=== PATIENT | male | born 1960 | race Caucasian/White ===

== ENCOUNTER 2017-12-08 14:08 | Emergency (ER) | payer MEDICAID ==
[2017-12-08] MEDS ORDERED: Lactated Ringers 1,000 ML IV ONE (17:06)
[2017-12-08] MEDS ORDERED: Acetaminophen 500 MG Tab PO ONE (17:06)
[2017-12-08] MEDS ORDERED: Doxycycline 100 MG in Sodium Chloride 0.9% 100 ML IV ONE (17:07)
[2017-12-08] MEDS ORDERED: Ketorolac 30 MG/ML SDV IVPUSH ONE (17:07)
--- NOTE | 2017-12-08 17:21 | EDM.PDOC ---
ED HPI GENERAL MEDICAL PROBLEM - General Chief Complaint: Fever Stated Complaint: HEADACHE,FEVER, CHILLS Time Seen by Provider: 12/08/17 17:20 Source of Information: Reports: Patient, Provider History Limitations: Reports: No Limitations - History of Present Illness INITIAL COMMENTS - FREE TEXT/NARRATIVE: 57 yo male was sent to the ER today from the clinic for fever since Thursday along with body aches that progressed to include a BARAJAS last night starting at about 0300h. He has no stiff neck or nausea. No rash. Did extract a deer tick from his thigh last Thursday. He has no urinary sx's, rash, abdominal pain, cough or sore throat. He has been trying to self medicate with ibuprofen and acetaminophen without sufficient relief of sx's. In the clinic he was found to have a mildly elevated AST of 47, a low WBC ct, a low platelet count, and a normal ESR. Onset: Gradual Onset Date: 12/06/17 Duration: Day(s): (3), Getting Worse Location: Reports: Head, Generalized Quality: Reports: Ache Severity: Moderate Improves with: Reports: None Worsens with: Reports: Other (time) Context: Reports: Other (? tick bite) Associated Symptoms: Reports: Fever/Chills, Headaches, Malaise. 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: Reports: Acetaminophen, NSAIDS Headache Pain Score (Numeric/FACES): 6 - Related Data Allergies Allergy/AdvReac Type Severity Reaction Status Date / Time bupropion [From Wellbutrin] Allergy Blisters Verified 12/08/17 16:50 Home Meds: Home Meds NK [No Known Home Meds] 12/08/17 [History] Past Medical History Other Cardiovascular History: left branch bundle bradley Musculoskeletal History: Reports: Fracture - Past Surgical History GI Surgical History: Reports: Cholecystectomy Musculoskeletal Surgical History: Reports: Shoulder Surgery Social & Family History - Tobacco Use Smoking Status *Q: Light Tobacco Smoker Years of Tobacco use: 30 Packs/Tins Daily: 0.1 - Caffeine Use Caffeine Use: Reports: Coffee - Recreational Drug Use Recreational Drug Use: No ED ROS GENERAL - Review of Systems Review Of Systems: See Below Constitutional: Reports: Fever, Chills, Malaise HEENT: Reports: No Symptoms Respiratory: Reports: No Symptoms Cardiovascular: Reports: Lightheadedness Endocrine: Reports: No Symptoms GI/Abdominal: Reports: No Symptoms : Reports: No Symptoms Musculoskeletal: Reports: Other (diffuse body aches.). Denies: Neck Pain Skin: Reports: No Symptoms Neurological: Reports: Headache Psychiatric: Reports: No Symptoms ED EXAM, SEPSIS - Physical Exam Exam: See Below Exam Limited By: No Limitations General Appearance: Alert, WD/WN, No Apparent Distress Eye Exam: Bilateral Eye: Normal Inspection Ears: Normal External Exam, Normal Canal, Hearing Grossly Normal, Normal TMs Nose: Normal Inspection, Normal Mucosa, No Blood Throat/Mouth: Normal Inspection, Normal Lips, Normal Oropharynx, Normal Voice, No Airway Compromise Head: Atraumatic, Normocephalic Neck: Normal Inspection, Supple, Non-Tender, Full Range of Motion Respiratory/Chest: No Respiratory Distress, Lungs Clear, Normal Breath Sounds, No Accessory Muscle Use Cardiovascular: Regular Rate, Rhythm, No Edema GI/Abdominal Exam: Normal Bowel Sounds, Soft, Non-Tender, No Distention Back: Normal Inspection. No: CVA Tenderness (R), CVA Tenderness (L) Extremities: Normal Inspection, Normal Range of Motion, Non-Tender, No Pedal Edema Neurological: Alert, Oriented, CN II-XII Intact, Normal Cognition, No Motor/ Sensory Deficits Psychiatric: Normal Affect, Normal Mood Skin: Warm, Dry, Intact, Normal Color, No Rash Lymphatic: Bilateral: No Adenopathy Course - Vital Signs Last Recorded V/S: Last Vital Signs Temp 39.1 C H 12/08/17 16:52 Pulse 105 H 12/08/17 16:52 Resp 18 12/08/17 16:52 BP 113/77 12/08/17 16:52 Pulse Ox 96 12/08/17 16:52 - Orders/Labs/Meds Orders: Active Orders 24 hr Category Date Time Status CULTURE BLOOD [BC] Stat Lab 12/08/17 17:05 Received CULTURE BLOOD [BC] Stat Lab 12/08/17 17:10 Received HUMAN GRANULOCYTIC REGINE-HGE Routine Lab 12/08/17 17:26 Received UA W/MICROSCOPIC [URIN] Stat Lab 12/08/17 17:34 Ordered Doxycycline [Vibramycin] 100 mg Med 12/08/17 17:07 Active Sodium Chloride 0.9% [Normal Saline] 100 ml IV ONETIME Lactated Ringers [Ringers, Lactated] 1,000 ml Med 12/08/17 17:06 Active IV BOLUS Medication Orders Lactated Ringer's (Ringers, Lactated) 1,000 mls @ 1,000 mls/hr IV BOLUS ONE Stop: 12/08/17 18:05 Last Admin: 12/08/17 17:15 Dose: 1,000 mls/hr Doxycycline Hyclate 100 mg/ (Sodium Chloride) 100 mls @ 100 mls/hr IV ONETIME ONE Stop: 12/08/17 18:06 Last Admin: 12/08/17 17:38 Dose: 100 mls/hr Labs: Laboratory Tests 12/08/17 Range/Units 17:10 Lactic Acid 1.7 (0.4-2.0) mmol/L Meds: Medications Generic Name Dose Route Start Last Admin Trade Name Freq PRN Reason Stop Dose Admin Lactated Ringer's 1,000 mls @ 1,000 mls/hr 12/08/17 17:06 12/08/17 17:15 Ringers, Lactated IV 12/08/17 18:05 1,000 mls/hr BOLUS ONE Administration Doxycycline Hyclate 100 mg/ 100 mls @ 100 mls/hr 12/08/17 17:07 12/08/17 17: 38 Sodium Chloride IV 12/08/17 18:06 100 mls/hr ONETIME ONE Administration Discontinued Medications Generic Name Dose Route Start Last Admin Trade Name Freq PRN Reason Stop Dose Admin Acetaminophen 1,000 mg 12/08/17 17:06 12/08/17 17:28 Tylenol Extra Strength PO 12/08/17 17:07 1,000 mg ONETIME ONE Administration Hydromorphone HCl 1 mg 12/08/17 17:41 12/08/17 17:51 Dilaudid IVPUSH 12/08/17 17:42 1 mg ONETIME ONE Administration Ketorolac Tromethamine 30 mg 12/08/17 17:07 12/08/17 17:28 Toradol IVPUSH 12/08/17 17:08 30 mg ONETIME ONE Administration Departure - Departure Time of Disposition: 18:30 Disposition: Home, Self-Care 01 Condition: Fair Clinical Impression: Anaplasmosis - Discharge Information Referrals: PCP,None [Primary Care Provider] - Forms: ED Department Discharge - My Orders Last 24 Hours: My Active Orders 12/08/17 17:05 CULTURE BLOOD [BC] Stat 12/08/17 17:06 Lactated Ringers [Ringers, Lactated] 1,000 ml IV BOLUS 12/08/17 17:07 Doxycycline [Vibramycin] 100 mg Sodium Chloride 0.9% [Normal Saline] 100 ml IV ONETIME 12/08/17 17:10 CULTURE BLOOD [BC] Stat 12/08/17 17:26 HUMAN GRANULOCYTIC REGINE-HGE Routine 12/08/17 17:34 UA W/MICROSCOPIC [URIN] Stat - Assessment/Plan Last 24 Hours: My Active Orders 12/08/17 17:05 CULTURE BLOOD [BC] Stat 12/08/17 17:06 Lactated Ringers [Ringers, Lactated] 1,000 ml IV BOLUS 12/08/17 17:07 Doxycycline [Vibramycin] 100 mg Sodium Chloride 0.9% [Normal Saline] 100 ml IV ONETIME 12/08/17 17:10 CULTURE BLOOD [BC] Stat 12/08/17 17:26 HUMAN GRANULOCYTIC REGINE-HGE Routine 12/08/17 17:34 UA W/MICROSCOPIC [URIN] Stat
[2017-12-08] MEDS ORDERED: HYDROmorphone 1 MG/ML Syringe IVPUSH ONE (17:41)
== END 2017-12-08 19:37 | disposition home or self-care (01) ==
LOC: JP.ED 14:08
DX: A77.49 Other ehrlichiosis (principal); F17.210 Nicotine dependence, cigarettes, uncomplicated; Z88.8 Allergy status to other drugs, medicaments and biological substances
CPT/HCPCS: 36415; 81001; 83605; 86666; 87040; 96365; 96375; 99284; A9270; J1170; J1885; J7030; J7120

== ENCOUNTER 2022-05-26 02:58 | Emergency (ER) | payer MEDICAID ==
[2022-05-26] MEDS ORDERED: Ketorolac 10 MG Tab PO ONE (03:34)
[2022-05-26 04:05] LABS: CORONAVIRUS COVID-19 NAA NEGATIVE (NEGATIVE)
== END 2022-05-26 04:23 | disposition home or self-care (01) ==
LOC: JP.ED 02:58
DX: J10.1 Influenza due to other identified influenza virus with other respiratory manifestations (principal); Z88.8 Allergy status to other drugs, medicaments and biological substances; F17.210 Nicotine dependence, cigarettes, uncomplicated; Z20.822 Contact with and (suspected) exposure to COVID-19
CPT/HCPCS: 0241U; 99283; A9270

== ENCOUNTER 2023-01-18 18:58 | Emergency (ER) | payer MEDICAID ==
[2023-01-18 19:45] LABS: BASOPHILS PERCENT AUTO 0.4 % (0.1-1.3); EOSINOPHILS ABSOLUTE AUTO 0.09 K/uL (0.00-0.40); EOSINOPHILS PERCENT AUTO 1.9 % (0.0-5.4); HEMOGLOBIN 15.3 g/dL (12.9-16.9); IMMATURE GRAN PERCENT AUTO 0.4 % (0.0-0.7); MEAN CORPUSCULAR HEMOGLOBIN 29.9 pg (31.6-35.5); MEAN CORPUSCULAR VOLUME 87.9 fL (81.4-99.0); MONOCYTES ABSOLUTE AUTO 0.58 K/uL (0.20-0.90); MONOCYTES PERCENT AUTO 12.6 % (3.3-12.6); NEUTROPHILS ABSOLUTE AUTO 3.31 K/uL (1.0-7.6); NEUTROPHILS PERCENT AUTO 71.7 % (40.0-78.1); PLATELET COUNT,PLT 143 K/uL (130-375); RED BLOOD CELL COUNT 5.12 M/uL (4.14-5.76); WHITE BLOOD CELL COUNT,WBC 4.6 K/uL (3.2-11.0)
[2023-01-18 19:51] LABS: BASOPHILS ABSOLUTE AUTO 0.02 K/uL (0.00-0.10); IMMATURE GRAN ABSOLUTE AUTO 0.02 K/uL (0.00-0.23)
[2023-01-18 20:05] LABS: ALANINE AMINOTRANSFERASE,ALT 26 U/L (12-78); ALBUMIN 3.3 g/dL (3.4-5.0); ALKALINE PHOSPHATASE 90 U/L (46-116); ASPARTATE AMNIOTRANSFERASE,AST 23 U/L (15-37); BILIRUBIN TOTAL 0.4 mg/dL (0.2-1.0); BLOOD UREA NITROGEN,BUN 17 mg/dL (7-18); C-REACTIVE PROTEIN 1.37 mg/dL (0.0-0.3); CALCIUM 8.2 mg/dL (8.5-10.1); CARBON DIOXIDE,CO2 25 mmol/L (21-32); CHLORIDE,CL 105 mmol/L (100-108); CREATININE 1.1 mg/dL (0.8-1.3); EST CRCL DRUG DOSING (CG) 68.45 mL/min; ESTIMATED GFR 76 mL/min (>60); GLUCOSE RANDOM 87 mg/dL (74-106); POTASSIUM,K 4.1 mmol/L (3.6-5.2); PROTEIN TOTAL,TP 6.5 g/dL (6.4-8.2); SODIUM,NA 138 mmol/L (140-148)
[2023-01-18 20:06] LABS: ANION GAP 12.1 mmol/L (5.0-14.0)
[2023-01-18 20:23] LABS: LYME AB IgG Negative (Negative); LYME AB IgM Negative (Negative)
== END 2023-01-18 21:31 | disposition home or self-care (01) ==
LOC: JP.ED 18:58
DX: U07.1 COVID-19 (principal); F17.210 Nicotine dependence, cigarettes, uncomplicated; Z88.8 Allergy status to other drugs, medicaments and biological substances
CPT/HCPCS: 80053; 85025; 86140; 86618; 86666; 86753; 99284; U0002